=== PATIENT | male | born 1950 | race Caucasian/White ===

== ENCOUNTER 2022-03-12 16:28 | Inpatient (IN) | payer MEDICARE, OTHER, SELFPAY ==
--- NOTE | ~2022-03-12 | CT_ITS ---
EXAMINATION: CTA chest PE abdomen pel DATE: 03/12/2022 18:28 CDT INDICATION: Right flank pain. Chest pain. TECHNIQUE: Computed tomographic angiography (CTA) of the chest, abdomen and pelvis was performed with 100 mL Omnipaque-350 intravenous contrast. The dose-length product was 2284.20 mGy-cm. Maximum inten sity projection 3D-reconstructions of the aorta and other arteries were constructed by the [employer] [facility] st on a separate workstation. Automated exposure control and iterative reconstruction technique were employed. COMPARISON: None. FINDINGS: Chest: There is atherosclerosis of the aorta without evidence for aneurysm or dissection. Borderline heart size. No significant pleural or pericardial effusion. No thoracic lymphadenopathy. Study is elvira hnically limited for evaluation of the lower lobe peripheral pulmonary arteries due to motion. There is bilateral lower lobe airspace disease. No large central pulmonary embolism. Moderate thoracic spon dylosis. Severe lumbar spondylosis with degenerative anterolisthesis at L4-5. Abdomen/pelvis: There is residual contrast throughout the colon. No obstruction. There is a large giovanny dder stone measuring 2.9 cm. Prostate gland is enlarged. The liver, spleen, pancreas, adrenal glands are unremarkable. There are nonobstructing bilateral augusto l stones. There is a left renal cyst measuring 6 cm. Gallbladder is present. No free air or free flui d. There is mild bladder wall thickening which is most likely due to enlarged prostate gland with giovanny dder outlet obstruction. IMPRESSION: 1. No large central pulmonary embolism. Evaluation for peripheral pulmonary embolism limited by motio n. 2: Bilateral lower lobe airspace disease may represent atelectasis or developing pneumonia. 3: Bilateral renal and bladder stones. No significant hydronephrosis. 4: Enlarged prostate gland with bladder wall thickening, likely due to outlet obstruction. Reviewed, dictated and finalized at location A. IMPRESSION: 1. No large central pulmonary embolism. Evaluation for peripheral pulmonary emb olism limited by motion. 2: Bilateral lower lobe airspace disease may represent atelectasis or developin g pneumonia. 3: Bilateral renal and bladder stones. No significant hydronephrosis. 4: Enlarged prostate gland with bladder wall thickening, likely due to outlet o bstruction.
--- NOTE | ~2022-03-12 | XR_ITS ---
XR chest 1V portable 03/12/2022 16:50 Indication: Chest pain Procedure: AP portable chest Comparison: No prior studies for comparison. Findings: Heart size upper normal. Bibasilar airspace disease, compatible with either edema or pneumo jcarlos. No significant effusion. No pneumothorax. Shallow inspiration with crowding of the pulmonary ves sels. Impression: 1: Bibasilar airspace disease may represent edema or pneumonia. Reviewed, dictated and finalized at location A. Impression: 1: Bibasilar airspace disease may represent edema or pneumonia.
[2022-03-12 16:30] VITALS: BP 143/80; PULSE 104; RESP 23; TEMP 36.9; O2SAT 90
--- NOTE | 2022-03-12 16:34 | ECG_ITS ---
Measurements Intervals [place] Rate: 101 P: -17 [place]: 148 QRS: -14 QRSD: 93 T: -7 QT: 348 QTc: 452 Interpretive Statements SINUS TACHYCARDIA LEFT VENTRICULAR HYPERTROPHY INFERIOR INFARCT, AGE INDETERMINATE BASELINE ARTIFACT- I, II, III, AVR, AVL, AVF, V2, V5 ABNORMAL ECG Electronically Signed On 03-12-2022 16:56:38 CDT by Sloan Ambriz D.O.
--- NOTE | 2022-03-12 16:35 | ECG_ITS ---
Measurements Intervals [place] Rate: 97 P: 1 [place]: 150 QRS: -12 QRSD: 96 T: 5 QT: 339 QTc: 432 Interpretive Statements SINUS RHYTHM ATRIAL PREMATURE COMPLEX LEFT VENTRICULAR HYPERTROPHY WITH ST-T CHANGE INFERIOR INFARCT, AGE INDETERMINATE BASELINE ARTIFACT- I, II, III, AVR, AVL, AVF, V4-V6 ABNORMAL ECG Electronically Signed On 03-12-2022 21:21:11 CDT by Sloan Ambriz D.O.
[2022-03-12] MEDS: MORPHINE SULFATE (*CRX) 2 MG/ML INJ IV PUSH ×2 (16:41→19:19)
[2022-03-12 16:54] LABS: Basophils Percent Auto 0.4 % (0.2-1.2); Eosinophils Absolute Auto 0.1 K/mm3 (0-0.3); Eosinophils Percent Auto 1.2 % (0-4.4); Hematocrit 39.3 % (42.0-52.0); Hemoglobin 13.6 g/dL (14.0-18.0); Immature Granulocyte Absolute 0.04 K/mm3 (0.00-0.031); Immature Granulocyte Percent A 0.5 % (0-0.5); Lymphocytes Absolute Auto 0.95 K/mm3 (0.9-3.2); Lymphocytes Percent Auto 12.5 % (18.3-44.2); Mean Corpuscular HGB Conc 34.6 g/dl (32-36); Mean Corpuscular Hemoglobin 28.5 pg (26-34); Mean Corpuscular Volume 82.2 fl (80-100); Mean Platelet Volume 8.6 fl (7.4-10.4); Monocytes Absolute Auto 0.9 K/mm3 (0.1-0.6); Monocytes Percent Auto 11.7 % (2.6-8.5); Neutrophils Absolute Auto 5.6 K/mm3 (1.3-6.7); Neutrophils Percent Auto 73.7 % (45.5-73.1); Platelet Count Result 222 k/mm3 (150-375); Red Blood Count 4.78 M/mm3 (4.6-6.20); Red Cell Distribution Width 12.8 % (11.5-14.5); White Blood Count 7.6 K/mm3 (4.5-10.0)
[2022-03-12 17:05] LABS: INR 1.2; Prothrombin Time 14.6 Seconds (11.1-14.7)
[2022-03-12 17:06] LABS: Partial Thromboplastin Time 26.8 SECONDS (22.3-36.8)
[2022-03-12 17:10] LABS: Alanine Aminotransferase 31 U/L (6-50); Albumin Level 3.8 g/dL (3.5-5.1); Alkaline Phosphatase 114 U/L (38-126); Anion Gap 5 mmol/L (8-16); Aspartate Amino Transferase 33 U/L (17-59); Bilirubin,Total 0.8 mg/dL (0.2-1.3); Blood Urea Nitrogen 22 mg/dL (9-20); Calcium 8.5 mg/dL (8.4-10.2); Carbon Dioxide 30 mmol/L (22-30); Chloride 98 mmol/L (98-107); Estimated Glomerular Filt Rate > 60; Glucose 151 mg/dL (65-110); Lipase 77 U/L (23-300); Potassium 3.9 mmol/L (3.4-5.0); Sodium 133 mmol/L (137-145)
[2022-03-12 17:21] LABS: Troponin I 0.013 ng/mL (0.000-0.034)
[2022-03-12 18:33] LABS: NT Pro B Type Natriuretic Pept 162 pg/mL (5-100)
[2022-03-12 18:37] LABS: SARS-CoV-2 RNA PCR Negative
--- NOTE | 2022-03-12 18:45 | ED.CHESTPAIN ---
HPI - Chest Pain General Chief Complaint: Chest Pain Stated Complaint: CHEST PAIN Source: RN notes reviewed History of Present Illness HPI narrative: Patient presents emergency department from a nursing rehab for chest pain. Patient states symptoms began approximately 1500 today. The pain is located over the right lower chest and the right upper abdomen does not radiate described as sharp and stabbing. Patient states pain is worse with a deep inspiration. Denies any fevers or chills cough nausea vomiting diarrhea or any other symptoms. States that he has had shortness of breath with the pain. 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 Related Data Allergies Allergy/AdvReac Type Severity Reaction Status Date / Time STEFAN Inhibitors Allergy Other Verified 03/12/22 19:41 Review of Systems Review of Systems: Gen.: Denies fevers or chills ENT: Denies congestion Respiratory: Reports shortness of breath denies cough CV: Reports chest pain GI: D reports right upper quadrant abdominal pain, denies nausea, emesis or diarrhea denies burning, urgency, frequency or hematuria Musculoskeletal: Denies back pain or muscle pain Neuro: Denies numbness, tingling, weakness or focal weakness Skin: Denies rash Except as documented, all other systems reviewed and negative [facility] Past Medical History Medical History (Updated 03/12/22 @ 18:50 by Loc Enriquez DO) 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 No clubbing, cyanosis or edema. NEURO: Awake and alert. Following commands, speech normal, no focal deficits SKIN:: Warm, dry. Normal Color PSYCHIATRIC: Normal affect/mood Course Course Emergency Course: Discussed with ALAYNA Miller for Dr. Calles agrees with admission Discussed with patient and family results of workup and diagnosis. Discussed need for admission. Patient and family understand and agree to current treatment plan Vital Signs Vital signs: Vital Signs Temperature 98.5 F 03/12/22 16:30 Pulse Rate 104 H 03/12/22 16:30 Respiratory Rate 23 H 03/12/22 16:30 Blood Pressure 143/80 H 03/12/22 16:30 Pulse Oximetry 90 03/12/22 16:30 Oxygen Delivery Room Air 03/12/22 16:30 Temperature 98.5 F 03/12/22 16:30 Pulse Rate 104 H 03/12/22 16:30 Respiratory Rate 23 H 03/12/22 16:30 Blood Pressure 143/80 H 03/12/22 16:30 Pulse Oximetry 90 03/12/22 16:30 Oxygen Delivery Room Air 03/12/22 16:30 MDM - Chest Pain Lab Data Result diagrams: 03/12/22 16:44 03/12/22 16:44 Labs: Lab Results 03/12/22 03/12/22 03/12/22 Range/Units 16:44 16:44 16:44 WBC 7.6 (4.5-10.0) K/mm3 RBC 4.78 (4.6-6.20) M/mm3 Hgb 13.6 L (14.0-18.0) g/dL Hct 39.3 L (42.0-52.0) % MCV 82.2 (80-100) fl MCH 28.5 (26-34) pg MCHC 34.6 (32-36) g/dl RDW 12.8 (11.5-14.5) % Plt Count 222 (150-375) k/mm3 MPV 8.6 (7.4-10.4) fl Immature Gran % (Auto) 0.5 (0-0.5) % Neut % (Auto) 73.7 H (45.5-73.1) % Lymph % (Auto) 12.5 L (18.3-44.2) % [place] % (Auto) 11.7 H (2.6-8.5) % Eos % (Auto) 1.2 (0-4.4) % Baso % (Auto) 0.4 (0.2-1.2) % Lymph # (Auto) 0.95 (0.9-3.2) K/mm3 [place] # (Auto) 0.9 H (0.1-0.6) K/mm3 Eos # (Auto) 0.1 (0-0.3) K/mm3 Baso #
[2022-03-12 19:54] LABS: Lactic Acid Reflex 1.4 mmol/L (0.7-2.0)
--- NOTE | 2022-03-12 20:00 | PM.IMHP ---
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 Patient stated that it started approximately 15 10 and it was right under his right breast. He denies any sweats, fevers, chills, cough, headache. Patient stated that he had a came out of nowhere. He also stated that it was doing okay until they moved him over for CT. It does reproduce with palpitation. His did say that he has had a little bit of cough but nothing productive. It appears the patient has been at [facility] for the last week it was going to [facility] when he was sent here for chest pain. His said that he has been in and out of hospitals over the last couple of months. 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 It was noted that the patient thought he had a stroke because he does have slurred speech however his stated that is better since it was 1st noted. Patient denies any pain, nausea, vomiting, weakness or fatigue. He did state that he still has numbness in his fingers, feet, mouth, chin. He also states is hard for him to get deep breath. However he does look overall comfortable. Abdomen does seem to be distended however patient states that that is how it has been for a while. CT of the abdomen did not show any further issues. There is notable renal and bladder stones with enlarged prostate. Patient does urinate which the stated that she feels like he urinates quite a bit. He does have bilateral lower extremity edema which his stated was a lot better however it is still 2 to 3+ pitting at this time. He denies any current chest pain, shortness of breath, nausea, vomiting, diarrhea, constipation. CTA did show a possible new pna. 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 Patient has 2 girls and 2 cats in the [employer]. Patient used to smoke and quit smoking in 1986. Patient wishes to be a full code at this time. 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 Gender identity (if verbalized by the patient): Male Sexual Orientation (if Verbalized by the Patient): Straight or Heterosexual Spiritual care concerns: No Agree to blood products: Yes Meds Home Medications and Allergies Home Medications Medication Instructions Recorded Confirmed Type amlodipine 10 mg tablet 10 mg PO DAILY 03/12/22 03/12/22 History atorvastatin 40 mg tablet 40 mg PO QHS 03/12/22 03/12/22 History hydrochlorothiazide 25 mg tablet 25 mg PO DAILY 03/12/22 03/12/22 History metoprolol succinate 25 mg 25 mg PO DAILY 03/12/22 03/12/22 History tablet,extended release 24 hr tamsulosin 0.4 mg capsule 0.4 mg PO DAILY 03/12/22 03/12/22 History Allergies Allergy/Ad
[2022-03-12 20:07] LABS: Troponin I 0.012 ng/mL (0.000-0.034)
--- NOTE | 2022-03-12 20:07 | ECG_ITS ---
Measurements Intervals [place] Rate: 93 P: 8 [place]: 158 QRS: -6 QRSD: 97 T: 7 QT: 362 QTc: 451 Interpretive Statements SINUS RHYTHM VENTRICULAR PREMATURE COMPLEX VOLTAGE CRITERIA FOR LVH INFERIOR INFARCT, AGE INDETERMINATE BORDERLINE T WAVE ABNORMALITY- ANT/HIGH LAT LEADS BASELINE ARTIFACT- V4-V5 ABNORMAL ECG Electronically Signed On 03-14-2022 13:47:40 CDT by Sloan Ambriz D.O.
[2022-03-12 20:22] LABS: Appearance Urine Clear (Clear); Bilirubin Urine Negative (Negative); Blood Urine 2+ (Negative); Color Urine Yellow (Yellow); Glucose Urine UA Negative (Negative); Ketones Urine Negative (Negative); Leukocyte Esterase Ur Negative LEU/UL (Negative); Nitrate Urine Negative (Negative); Protein Urine 1+ mg/dL (Negative); Urobilinogen Urine 0.2 mg/dL (<2.0); pH Urine 5.5 (5.0-9.0)
[2022-03-12 20:28] LABS: Add Urine Microscopic? YES; Mucus Urine Few /lpf; Squamous Epithelial Cell Urine Rare /hpf (Few)
--- NOTE | 2022-03-12 20:53 | ADMGEN ---
This patient, Vipul Chowdary, was admitted to IMU Room 205-01. Patient/family oriented to hospital policies and general routines including ID bracelet, bed and alarms, visiting hours, pain management, procedures, bathroom and other care routines, personal items, smoking policy, room service/diet, and visiting hours. Information on how to activate the Rapid Response Team has been discussed. Patient/Family are encouraged to report perceived risks to care and to ask questions if they do not understand what they are told or what they should do.
[2022-03-12 21:00] VITALS: BP 150/79; PULSE 109; RESP 20; TEMP 36.6; O2SAT 97
[2022-03-12 21:47] VITALS: BMI 38.9
[2022-03-12 22:00] VITALS: PULSE 90
[2022-03-12 22:58] LABS: Troponin I 0.014 ng/mL (0.000-0.034)
[2022-03-12 23:48] VITALS: BP 157/62; PULSE 91; RESP 20; TEMP 36.9; O2SAT 100
[2022-03-13] VITALS (16 sets, daily range): BP systolic 123–147; BP diastolic 53–78; PULSE 70–101; RESP 20–97; TEMP 36.3–37.1; O2SAT 90–100
[2022-03-13 05:21] LABS: Basophils Percent Auto 0.3 % (0.2-1.2); Eosinophils Absolute Auto 0.1 K/mm3 (0-0.3); Eosinophils Percent Auto 1.1 % (0-4.4); Hematocrit 38.2 % (42.0-52.0); Hemoglobin 12.9 g/dL (14.0-18.0); Immature Granulocyte Absolute 0.03 K/mm3 (0.00-0.031); Immature Granulocyte Percent A 0.4 % (0-0.5); Lymphocytes Percent Auto 11.2 % (18.3-44.2); Mean Corpuscular HGB Conc 33.8 g/dl (32-36); Mean Corpuscular Hemoglobin 28.3 pg (26-34); Mean Corpuscular Volume 83.8 fl (80-100); Mean Platelet Volume 8.8 fl (7.4-10.4); Monocytes Absolute Auto 0.8 K/mm3 (0.1-0.6); Monocytes Percent Auto 11.8 % (2.6-8.5); Neutrophils Absolute Auto 5.4 K/mm3 (1.3-6.7); Neutrophils Percent Auto 75.2 % (45.5-73.1); Platelet Count Result 221 k/mm3 (150-375); Red Blood Count 4.56 M/mm3 (4.6-6.20); Red Cell Distribution Width 12.9 % (11.5-14.5); White Blood Count 7.1 K/mm3 (4.5-10.0)
[2022-03-13 05:33] LABS: Alanine Aminotransferase 30 U/L (6-50); Albumin Level 3.6 g/dL (3.5-5.1); Alkaline Phosphatase 93 U/L (38-126); Anion Gap 6 mmol/L (8-16); Aspartate Amino Transferase 33 U/L (17-59); Bilirubin,Total 0.9 mg/dL (0.2-1.3); Blood Urea Nitrogen 20 mg/dL (9-20); Calcium 8.1 mg/dL (8.4-10.2); Carbon Dioxide 30 mmol/L (22-30); Chloride 98 mmol/L (98-107); Estimated CRCL calculation 91 ml/min; Estimated Glomerular Filt Rate > 60; Glucose 145 mg/dL (65-110); Potassium 3.7 mmol/L (3.4-5.0); Sodium 134 mmol/L (137-145)
[2022-03-13 05:53] LABS: Platelet Estimate Adequate (Adequate)
[2022-03-13 05:55] LABS: Atypical Lymphocytes Present
[2022-03-13 06:40] LABS: Hemoglobin A1C 6.5 % (<5.7)
[2022-03-13] MEDS: hydroCHLOROthiazide 25 MG TABLET PO (08:57)
[2022-03-13] MEDS: ENOXAPARIN 40 MG/0.4 ML SYRINGE SUB-Q (08:57)
[2022-03-13] MEDS: DOCUSATE SODIUM 100 MG CAPSULE PO (08:57)
[2022-03-13] MEDS: METOPROLOL SUCCINATE EXT REL 25 MG TABCR PO (08:57)
[2022-03-13] MEDS: TAMSULOSIN HCL 0.4 MG CAPSULE PO (08:57)
[2022-03-13] MEDS: amLODIPine BESYLATE 5 MG TABLET 10 MG PO (08:57)
--- NOTE | 2022-03-13 15:33 | PM.IMPN ---
Progress Note: A&P Assessment and Plan (1) Chest pain: Code(s): R07.9 - Chest pain, unspecified Status: Acute Assessment and Plan: Patient presents with complaints of right lower chest pain. It is tender to palpate. It is pleuritic in nature. Could be related to a fall recently although he denies this. Troponin was negative x3. CTA was negative for PE. EKG showing no acute changes. COVID was negative. He does have fever to suggest a infectious etiology either viral pleurisy or bacterial pneumonia. Doubt that this is cardiac in nature. continue IV antibiotics. (2) Community acquired pneumonia: Code(s): J18.9 - Pneumonia, unspecified organism Status: Acute Assessment and Plan: Patient presents with chest pain. Chest x-ray shows bibasilar airspace disease. CT of the chest shows bilateral lower lobe airspace disease. He did have fever on admission but white count normal. He denies cough. Possibly pneumonia which could explain his pleuritic right-sided pain. Fever has resolved. COVID is negative. Will continue Rocephin azithromycin. Wean oxygen as tolerated. Have speech therapy evaluate for evidence of aspiration. (3) Renal calculi: Code(s): N20.0 - Calculus of kidney Status: Acute Assessment and Plan: CT noted bilateral renal and bladder stones but no hydronephrosis. He does have a history of nephrolithiasis. No evidence of obstructive process. Continue to monitor clinically. (4) HTN (hypertension): Code(s): I10 - Essential (primary) hypertension Status: Acute Assessment and Plan: Patient's blood pressure was reviewed on 03/13. Blood pressure remains well controlled. Will continue current medications. 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 His condition is slowly improving. The plan is for him to go to acute rehab once he is well. Start PT OT. (6) HLD (hyperlipidemia): Code(s): E78.5 - Hyperlipidemia, unspecified Status: Acute Assessment and Plan: Stable. LFTs normal. Continue home atorvastatin 40 mg at night. Check TCK (7) BPH (benign prostatic hyperplasia): Code(s): N40.0 - Benign prostatic hyperplasia without lower urinary tract symptoms Status: Acute Assessment and Plan: Stable. Bladder does not feel distended. CT scan does show enlarged prostate gland with bladder wall thickening, likely due to outlet obstruction.Continue home tamsulosin. Trend urine output. Bladder scan p.r.n. Avoid anticholinergics such as Benadryl. Subjective Date/time seen: 03/13/22 15:33 Interval history: 71yo male with a past medical history of HLD, HTN, BPH, and Guillain-Greenwood who presented to the ED with complaints of chest pain.?? Feels well. Denies SOB. Has right lwer chest pain that is pleuritic. He did fall 4 days ago bruising his right thigh but no hip pain. No LOC or head injury. Denies that he injuried his right lower chest/abd with the fall. The right lower chest pain began yesterday. Not on home o2. Denies any dysphagia or odynophagia. Exam Narrative: Tm 101.2 98.7 137/53 83 24 94% 2L Gen - NARD Chest - few basilar rhonchi o/w clear, nml RR CV - RRR S1/S2. Tele showing PVCs and one brief run of ?SVT Abd - Soft, obese, protubernat and tympanitic. Pain in the right upper quad. +BS Ext - No pedal edema. Abilio hose in place Psych - Nml mood and affect Skin - Warm and dry Objective Data Vital Signs Vital Signs: Vital Signs - 24 hr 03/12/22 16:30 03/12/22 21:00 03/12/22 22:00 Temperature 98.5 F 97.9 F Pulse Rate 104 H 109 H 90 Respiratory Rate 23 H 20 Blood Pressure 143/80 H 150/79 H Pulse Oximetry 90 97 Oxygen Delivery Room Air Oxygen Flow Rate 03/12/22 23:48 03/13/22 00:00 03/13/22 00:00 Temperature 98.5 F Pulse Rate 91 8
[2022-03-13] MEDS: ATORVASTATIN 40 MG TABLET PO (20:45)
[2022-03-14] VITALS (11 sets, daily range): BP systolic 135–142; BP diastolic 56–75; PULSE 69–92; RESP 18–24; TEMP 36.6–37.3; O2SAT 93–97
[2022-03-14 05:03] LABS: Basophils Percent Auto 0.4 % (0.2-1.2); Eosinophils Absolute Auto 0.1 K/mm3 (0-0.3); Eosinophils Percent Auto 1.7 % (0-4.4); Hematocrit 37.5 % (42.0-52.0); Hemoglobin 12.4 g/dL (14.0-18.0); Immature Granulocyte Absolute 0.04 K/mm3 (0.00-0.031); Immature Granulocyte Percent A 0.5 % (0-0.5); Lymphocytes Percent Auto 19.2 % (18.3-44.2); Mean Corpuscular HGB Conc 33.1 g/dl (32-36); Mean Corpuscular Hemoglobin 28.4 pg (26-34); Monocytes Absolute Auto 0.9 K/mm3 (0.1-0.6); Monocytes Percent Auto 10.6 % (2.6-8.5); Neutrophils Absolute Auto 5.7 K/mm3 (1.3-6.7); Neutrophils Percent Auto 67.6 % (45.5-73.1); Platelet Count Result 216 k/mm3 (150-375); Red Blood Count 4.36 M/mm3 (4.6-6.20); Red Cell Distribution Width 12.7 % (11.5-14.5); White Blood Count 8.3 K/mm3 (4.5-10.0)
[2022-03-14 05:27] LABS: Albumin Level 3.3 g/dL (3.5-5.1); Anion Gap 3 mmol/L (8-16); Blood Urea Nitrogen 19 mg/dL (9-20); CRP 5.8 mg/dL (<1.0); Calcium 7.8 mg/dL (8.4-10.2); Carbon Dioxide 32 mmol/L (22-30); Chloride 97 mmol/L (98-107); Creatine Kinase 108 U/L (55-170); Estimated CRCL calculation 91 ml/min; Estimated Glomerular Filt Rate > 60; Glucose 121 mg/dL (65-110); Phosphorus 3.5 mg/dL (2.5-4.5); Potassium 3.3 mmol/L (3.4-5.0); Sodium 132 mmol/L (137-145)
[2022-03-14] MEDS: METOPROLOL SUCCINATE EXT REL 25 MG TABCR PO (09:24)
[2022-03-14] MEDS: DOCUSATE SODIUM 100 MG CAPSULE PO (09:24)
[2022-03-14] MEDS: hydroCHLOROthiazide 25 MG TABLET PO (09:24)
[2022-03-14] MEDS: TAMSULOSIN HCL 0.4 MG CAPSULE PO (09:24)
[2022-03-14] MEDS: amLODIPine BESYLATE 5 MG TABLET 10 MG PO (09:24)
[2022-03-14] MEDS: ENOXAPARIN 40 MG/0.4 ML SYRINGE SUB-Q (09:25)
--- NOTE | 2022-03-14 15:00 | PM.DS ---
DS: Admitting Diagnosis Discharge Date 03/14/22 Admitting Diagnosis Chest pain DS: Discharge Diagnosis Discharge Diagnosis (1) Chest pain: Code(s): R07.9 - Chest pain, unspecified Status: Acute Assessment and Plan: Patient presented with complaints of right lower chest pain. It was tender to palpate and pleuritic in nature. Troponin was negative x3. CTA was negative for PE. EKG showing no acute changes. COVID was negative. He did have fever to suggest a infectious etiology either viral pleurisy or bacterial pneumonia. Not felt to be cardiac in nature. (2) Community acquired pneumonia: Code(s): J18.9 - Pneumonia, unspecified organism Status: Acute Assessment and Plan: Patient presented with chest pain. Chest x-ray shows bibasilar airspace disease. CT of the chest shows bilateral lower lobe airspace disease. COVID is negative. He had fever on admission but white count was normal. He denied cough. Possibly pneumonia which could explain his pleuritic right-sided pain. He was started on Rocephin and azithromycin. Fever has resolved. Speech therapy evaluated the patient and found no concerns. He remains on 2 L oxygen. Will have oxygen weaned down at the facility as he tolerates. (3) Renal calculi: Code(s): N20.0 - Calculus of kidney Status: Acute Assessment and Plan: CT noted bilateral renal and bladder stones but no hydronephrosis. He does have a history of nephrolithiasis. No evidence of obstructive process. Continue to monitor clinically. (4) HTN (hypertension): Code(s): I10 - Essential (primary) hypertension Status: Acute Assessment and Plan: Patient's blood pressure was monitored closely and remained well controlled. 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 His condition is slowly improving. PT/OT worked with him here. The plan is for acute rehab at discharge (6) HLD (hyperlipidemia): Code(s): E78.5 - Hyperlipidemia, unspecified Status: Acute Assessment and Plan: Stable. LFTs were normal. We continued home atorvastatin 40 mg at night. (7) BPH (benign prostatic hyperplasia): Code(s): N40.0 - Benign prostatic hyperplasia without lower urinary tract symptoms Status: Acute Assessment and Plan: Stable. CT scan does show enlarged prostate gland with bladder wall thickening, likely due to outlet obstruction. We continued home tamsulosin. Continue to have nursing Bladder scan p.r.n. Avoid anticholinergics such as Benadryl. DS: Summary Hospital Course Reason for hospitalization: 71yo male with a past medical history of HLD, HTN, BPH, and Guillain-Onset who presented to the ED with complaints of chest pain.??Please see H&P for details Hospital Course: Please see above for details of hospital course. Status at Discharge Cognitive/behavioral status at discharge: Stable Time Spent with Patient Time attestation: Total time spent providing and/or coordinating discharge services: 34 minutes Time spent: Greater than 30 minutes Exam Narrative: He feels much better. No problems overnight. The right side chest pain has resolved. No pleuritic component. AF 98.4 135/75 78 20 97% 2L Gen - NARD sitting at the side of the bed Chest -clear to auscultation bilaterally CV - RRR S1/S2. Tele showing PVCs and two brief runs of regular tachycardia, probably atrial tach Abd - Soft, obese, NT, +BS Ext - No pedal edema. Abilio hose in place Psych - Nml mood and affect Skin - Warm and dry DS: Data Data Completed and Pending Labs on day of discharge: Labs from last 24 hours 03/14/22 03/14/22 04:30 04:30 WBC 8.3 RBC 4.36 L Hgb 12.4 L Hct 37.5 L MCV 86.0 MCH 28.4 MCHC 33.1 RDW 12.7 Plt Count 216 MPV 9.0 Immature
[2022-03-14] MEDS: POTASSIUM CHLORIDE 20 MEQ TABLET PO (16:48)
== END 2022-03-14 18:47 | DRG 194 ==
LOC: ANHED 18:50 → ANHIMU 20:03
PROVIDERS: Nurse Practitioner; Admitting Provider Family Medicine; Emergency Provider Emergency Medicine; PCP Family Medicine; Visit Provider Internal Medicine
DX: J18.9 Pneumonia, unspecified organism (principal); G61.0 Guillain-Barre syndrome; Z20.822 Contact with and (suspected) exposure to COVID-19; N20.0 Calculus of kidney; N21.0 Calculus in bladder; I10 Essential (primary) hypertension; E78.5 Hyperlipidemia, unspecified; N40.0 Benign prostatic hyperplasia without lower urinary tract symptoms; Z87.891 Personal history of nicotine dependence
CPT/HCPCS: 36415; 71045; 71275; 74177; 80053; 80069; 81001; 82550; 83036; 83605; 83690; 83735; 83880; 84484; 85025; 85610; 85730; 86140; 87040; 87086; 92610; 93005; 96365; 96372; 96375; 96376; 97161; 97166; 99285; A9270; C9803; G0378; J0456; J0696; J1650; J2270; Q9967; U0003; U0005